=== PATIENT | female | born 1995 | race Caucasian/White ===

== ENCOUNTER 2020-06-16 21:51 | Emergency (ER) | payer OTHER ==
[~2020-06-16 21:51] MED LIST: APRI 28 DAY TA1 EACH PO; OMNICEF 300 MG300 MG PO; ZOFRAN4 MG PO
[2020-06-16 23:04] LABS: HEMOGLOBIN 13.6 gm/dl (12.3-15.3); RED BLOOD COUNT 4.34 M/UL (4.00-5.10); WHITE BLOOD COUNT 8.9 K/UL (4.5-11.0)
[2020-06-16 23:16] LABS: BUN/CREATININE RATIO 22 (0-10)
[2020-06-17] MEDS ORDERED: BENTYL 20MG TAB20 MG PO (02:49)
[2020-06-17] MEDS ORDERED: ZOFRAN ODT 4 MG4 MG PO (02:49)
[2020-06-17] MEDS ORDERED: LODINE CAP 300300 MG PO (02:49)
== END 2020-06-17 03:12 | disposition home or self-care (01) ==
LOC: ER1 21:51
PROVIDERS: Family Medicine
DX: R10.817 Generalized abdominal tenderness (principal); R11.2 Nausea with vomiting, unspecified; R19.7 Diarrhea, unspecified; K92.89 Other specified diseases of the digestive system
CPT/HCPCS: 80053; 81001; 82150; 83605; 83690; 84703; 85025; 87086; 96374; 96375; 96376; 99284; J1885; J2405; Q9967

== ENCOUNTER → 2020-10-13 | Outpatient (CLI) | payer OTHER ==
[~2020-10-13] MED LIST changes: +BENTYL 20MG TAB20 MG PO; +LODINE CAP 300300 MG PO; +ZOFRAN ODT 4 MG4 MG PO
== END ==
LOC: KOH-I 08:00
DX: R11.2 Nausea with vomiting, unspecified (principal); R19.7 Diarrhea, unspecified; R10.9 Unspecified abdominal pain
CPT/HCPCS: 76705